=== PATIENT | male | born 1945 | race Caucasian/White ===

== ENCOUNTER → 2024-03-09 09:58 | Outpatient (REF) | payer OTHER, SELFPAY | LOC: RAD 09:58 | PROVIDERS: ATTENDING PHYSICIAN Surgery Vascular Surgery; FAMILY PHYSICIAN Nurse Practitioner Family | DX: I73.9 Peripheral vascular disease, unspecified (principal) | CPT/HCPCS: 93922; 93925 ==

== ENCOUNTER → 2024-04-26 10:36 | Outpatient (REF) | payer OTHER, SELFPAY | LOC: HWRAD 10:36 | PROVIDERS: ATTENDING PHYSICIAN Nurse Practitioner Family | DX: Z87.891 Personal history of nicotine dependence (principal); I50.32 Chronic diastolic (congestive) heart failure; R05.9 Cough, unspecified | CPT/HCPCS: 71046; 71271 ==

== ENCOUNTER → 2024-05-30 10:13 | Outpatient (REF) | payer OTHER, SELFPAY | LOC: HWRCS 10:13 | PROVIDERS: ATTENDING PHYSICIAN Nurse Practitioner Family | DX: I51.7 Cardiomegaly (principal) | CPT/HCPCS: 93306 ==

== ENCOUNTER → 2024-10-20 10:53 | Outpatient (REF) | payer OTHER, SELFPAY | LOC: RAD 10:53 | PROVIDERS: ATTENDING PHYSICIAN Registered Nurse; FAMILY PHYSICIAN Nurse Practitioner Family | DX: I72.3 Aneurysm of iliac artery (principal); I73.9 Peripheral vascular disease, unspecified | CPT/HCPCS: 93922; 93925; 93978 ==

== ENCOUNTER → 2025-04-03 12:34 | Outpatient (REF) | payer OTHER, SELFPAY | LOC: RAD 12:34 | PROVIDERS: ATTENDING PHYSICIAN Internal Medicine Critical Care Medicine; FAMILY PHYSICIAN Nurse Practitioner Family | DX: R91.1 Solitary pulmonary nodule (principal) | CPT/HCPCS: 71250 ==

== ENCOUNTER → 2025-04-25 11:14 | Outpatient (REF) | payer OTHER, SELFPAY | LOC: PET 11:14 | PROVIDERS: ATTENDING PHYSICIAN Internal Medicine Critical Care Medicine | DX: R91.1 Solitary pulmonary nodule (principal) | CPT/HCPCS: 78815 ==

== ENCOUNTER 2025-05-16 06:20 | Day surgery (SDC) | payer OTHER, SELFPAY ==
[2025-05-08 11:15] LABS: Hematocrit 32.3 % (39.0-52.0); Hemoglobin 9.4 g/dL (13.0-18.0); Mean Corp Hgb Conc. 29.1 g/dL (33.0-37.0); Mean Corpuscular Volume 80.3 fL (80.0-94.0); Platelet Count 282 10^3/uL (130-400); Red Cell Dist. Width 17.1 % (11.5-14.5)
[2025-05-08 11:26] LABS: APTT 31.0 Sec (23.4-35.0); INR 1.43; PT 17.7 Sec (11.4-14.6)
[2025-05-08 11:59] LABS: Blood Urea Nitrogen 12 mg/dl (9-20); Calcium 8.7 mg/dl (8.4-10.2); Carbon Dioxide 23 mmol/L (22-30); Chloride 110 mmol/L (98-107); Glucose 111 mg/dl (70-99); Potassium 5.0 mmol/L (3.5-5.1); Sodium 143 mmol/L (135-145); eGFR 56.23
[2025-05-08 14:11] VITALS: BMI 29.4
[2025-05-16] VITALS (7 sets, daily range): BP systolic 133–160; BP diastolic 61–85; BMI 29.0
[2025-05-16] MEDS: VENTOLIN NEBULES 2.5 MG INH (12:46)
[2025-05-16] MEDS: NSS 500 IV (13:11)
== END 2025-05-16 16:40 | disposition home or self-care (01) ==
LOC: SDS 06:20
PROVIDERS: ATTENDING PHYSICIAN Internal Medicine; FAMILY PHYSICIAN Nurse Practitioner Family
DX: C34.11 Malignant neoplasm of upper lobe, right bronchus or lung (principal); C77.1 Secondary and unspecified malignant neoplasm of intrathoracic lymph nodes
CPT/HCPCS: 31652; 31627; 31623; 31624; 36415; 71045; 80048; 85027; 85610; 85730; 87015; 87070; 87102; 87116; 87205; 88112; 88172; 88173; 88184; 88185; 88305; 88333; 88341; 88342; 94640

== ENCOUNTER 2025-05-27 17:32 | Emergency (ER) | payer OTHER, SELFPAY ==
[2025-05-27 17:39] VITALS: BP 167/75
--- NOTE | 2025-05-27 18:14 | ED.GENMED ---
History of Present Illness
General
Chief Complaint: Male Genito-Urinary Symptoms
Source: patient
Time Seen by Provider: 05/27/25 18:01
History of Present Illness
History of Present Illness:
This patient is a 79-year-old male presents emergency department with complaints of inability to properly urinate. He states he has had difficulty fully emptying his bladder for at least a couple of days and noted 'dribbling' such that he bought
pads last night. Particular in the last few hours, he notes inability to urinate and urgency. He has urinated a total of twice today. He denies bleeding, clots, flank pain, abdominal pain, nausea, vomiting, fever, chills, or other complaints.
Past History
Past History
ED Past Medical History: CAD, HTN, Hypercholesterolemia and Other (Atrial tachycardia, A-fib, CKD, peripheral vascular disease, valvular heart disease, heart failure, anxiety, arthritis)
ED Past Surgical History: Cardiac (AVR, CABG x3)
Social History
Tobacco: Former smoker
Alcohol: Occasional
Employment: Employed
Family History
Family History: Negative Diabetes, Hypertension, Early CAD, Asthma or Cancer
Phy Exam
Physical Exam
Physical Exam:
GENERAL: Alert , appears slightly uncomfortable
EYE: pupils equal and reactive
NECK: Supple, no significant adenopathy.
ENT: o/p clr, mmm.
CARDIAC: Regular rate and rhythm .
LUNGS: Clear breath sounds bilaterally, no acute respiratory distress, no wheezes/rales/rhonchi
ABDOMEN: Soft, without focal tenderness, no r/g, no cvat
NEUROLOGICAL: Alert and oriented, no focal neuro deficits
SKIN: Warm and dry, skin intact.
MUSCULOSKELETAL: No edema, well perfused.
PSYCH: Normal and appropriate interaction.
: (Sergey WOODS present) uncircumsc, ?swelling of penile shaft, no active bleeding/discharge, testicles wnl
Course
Orders/Labs/Results
Orders:
Orders
05/27/25 18:13
Bladder Scan- Treatment ONCE
diazePAM [Valium Injection] 5 mg IV NOW STA
05/27/25 18:16
Basic Metabolic Panel Urgent
Complete Blood Count/No Diff Urgent
05/27/25 18:58
CT Abd/pel Without Iv Or Oral Stat
Comment:
Reason For Exam: bladder pain
05/27/25 22:11
diazePAM [Valium Injection] 10 mg .ROUTE .STK-MED ONE
05/27/25 22:12
diazePAM [Valium Injection] 5 mg IV NOW STA
05/28/25 00:10
Amoxicillin 500 mg/Clav 125 mg [Augmentin 500 mg/125 mg] 1 tablet PO NOW STA
05/28/25 00:42
Amoxicillin 500 mg/Clav 125 mg [Augmentin 500 mg/125 mg] 1 tablet .ROUTE .STK-MED ONE
05/28/25 00:43
Amoxicillin 500 mg/Clav 125 mg [Augmentin 500 mg/125 mg] 1 tablet .ROUTE .STK-MED ONE
05/28/25 01:08
Urinalysis Reflex To Culture Urgent
Date Specimen was Collected: 05/28/25
Time Specimen was Collected: 01:06
Urine Microscopic Reflex Cult Urgent
Urine Culture Urgent
GRETTA Source: U
Specimen Description:
Date Specimen was Collected: 05/28/25
Time Specimen was Collected: 01:06
Abnormal Lab Results
05/27/25 05/28/25
18:16 01:08
RBC 3.78 L 10^6/uL
(4.70-6.10)
Hgb 9.0 L g/dL
(13.0-18.0)
Hct 30.0 L %
(39.0-52.0)
MCV 79.4 L fL
(80.0-94.0)
MCH 23.8 L pg
(27.0-31.0)
MCHC 30.0 L g/dL
(33.0-37.0)
RDW 17.7 H %
(11.5-14.5)
Chloride 110 H mmol/L
(98-107)
Glucose 109 H mg/dl
(70-99)
Urine Ketones 1+ A
(Negative)
Ur Occult Blood Reflex 4+ A
(Negative)
Leukocyte Esterase Rfl 2+ A
(Negative)
Urine RBC 11-15 A /HPF
(0-2)
Urine WBC (Reflex) 16-20 A /HPF
(0-5)
Urine Bacteria (Reflex) Many A
(Negative)
Urine Glucose 4+ A
(Negative)
Urine Albumin (Reflex) 2+ A
(Neg - Trace)
05/27/25 18:16
05/27/25 18:16
Vital Signs
Initial and Last Documented VS:
Initial Vital Signs
Temp Pulse Resp BP Pulse Ox
97.5 F 96 20 167/75 100
05/27/25 17:39 05/27/25 17:39 05/27/25 17:39 05/27/25 17:39 05/27/25 17:39
Last Documented Vital Signs
Temp Pulse Resp BP Pulse Ox
97.6 F 78 18 164/78 98
05/28/25 00:46 05/28/25 00:46 05/28/25 00:46 05/28/25 00:46 05/28/25 00:46
*Pulse Oximetry
SaO2: 100
Oxygen Mode of Delivery: Room air
Patient hypoxic: no
*Critical Care Note
Total Time (30-74mins, 75-104mins- exclusive of procedures): Not Applicable
Update Note
Update Note:
Patient presents to the Emergency Department with ____inability urinate
Number and Complexity of Problems Addressed at the Encounter
� Chronic conditions affecting care:
� Acute Exacerbation and/or Progression of Chronic Illness:
� Differential Diagnosis includes: But not limited to kidney stone, urinary retention caused by clots, urinary obstruction, renal insufficiency, etc. etc.
Amount and/or Complexity of Data to be Reviewed and Analyzed
� I performed an independent evaluation of and my interpretation is:
EKG:
CT:No acute pathology of the abdomen or pelvis and thigh.
Right lower lobe groundglass opacities and pulmonary nodules concerning for pulmonary metastasis. New
Bilateral adrenal soft tissue masses. Stable. Recent PET finding suggests adrenal metastasis
Bilateral common iliac artery aneurysms. Stable
Diverticulosis. Stable
Mild prostate hypertrophy. Stable
Xrays:
Laboratory Studies:anemia (approx baseline), otherwise nad
Other:
� Review of other/old records reveals: Review of prior records including May 16, 2025 patient noted to have an abnormal PET scan, is currently anticoagulated given his history of arrhythmia.
� Clinical information was obtained by an independent historian:
� Prescriptions/Medications Considered but not given:
� Further testing considered but not performed:
Risk of Complications and/or Morbidity or Mortality of Patient Management
� Social determinants of health affecting care:
� Discussion with other providers (PCP, Hospitalists, Consultants, etc):
� Escalation of care including admission/observation vs risk of discharge considered: Case discussed with urology Dr. Ortega as both myself and RN after multiple attempts unable to insert Hess catheter. He came bedside,
inserted Hess catheter, recommends antibiotics and follow-up with urology later this week. CAT scan report printed out for patient and discussed with him and his daughter. This will obviously require close follow-up as well.
ED Attending Note
-
Portions of this chart may have been created with voice recognition software.� Occasional wrong word or��sound alike� substitutions may have occurred due to the inherent limitations of voice recognition software.
Discharge Plan
Departure
Patient Disposition: Home (Routine Discharge)
Date of Disposition: 05/28/25
Time of Disposition: 00:07
Patient with high blood pressure during this ER visit?: Yes
Condition: Good
Discharge Problem:
Acute urinary retention
Instructions: How to Care for Your Hess Catheter, Male, Urinary Retention (DC), BLOOD PRESSURE
Prescriptions:
New
amoxicillin-pot clavulanate [Augmentin] 500-125 mg tablet
1 tab PO Q12H 7 Days Qty: 14 0RF
No Action
Centrum Silver 1 EACH tablet
1 ea PO DAILY
aspirin 81 MG tablet,delayed release (DR/EC)
81 mg PO DAILY
metoprolol succinate 50 MG tablet extended release 24 hr
50 mg PO BID Qty: 60 0RF
Eliquis 5 MG tablet
5 mg PO BID Qty: 60 0RF
ibuprofen [Advil Liqui-Gel] 200 mg Capsule
200 - 400 mg PO Q6HPRN PRN (Reason: PAIN)
atorvastatin 40 mg Tablet
40 mg PO HS
furosemide 40 MG tablet
40 mg PO DAILY
diltiazem HCl 120 mg Capsule,Extended Release 24hr
120 mg PO DAILY Qty: 30 0RF
Jardiance 10 mg Tablet
10 mg PO DAILY Qty: 30 0RF
alprazolam 0.5 mg Tablet
0.5 mg PO PRN PRN (Reason: ANXIETY)
pantoprazole 40 mg Tablet,Delayed Release (Dr/Ec)
40 mg PO DAILY
umeclidinium-vilanterol [Anoro Ellipta] 62.5-25 mcg/actuation Blister With Device
1 inh INHALATION DAILY
albuterol 90 mcg/actuation Aerosol
90 mcg INHALATION PRN PRN (Reason: SOB)
Patient Comments:
Patient never used medication
Referrals:
Boo Ortega MD [Active, Urology] - Follow up in 2-3 days
UNKNOWN - PT DOES,NOT KNOW [Family Provider]
Activity Restrictions/Additional Instructions:
YOU HAVE FINDINGS ON YOUR CAT SCAN THAT ARE CONCERNING AND REQUIRE VERY VERY CLOSE FOLLOW-UP. PLEASE BRING THIS REPORT TO YOUR DOCTOR THIS WEEK. YOU ALSO NEED TO SEE THE UROLOGIST REGARDING YOUR HESS CATHETER. IF THE CATHETER DOES NOT DRAIN, YOU
DEVELOP PAIN, BLEEDING, FEVER, CHILLS, ABDOMINAL PAIN, FLANK PAIN, VOMITING OR OTHER WORRISOME SIGNS, PLEASE RETURN TO THE ER IMMEDIATELY
Interventions
Interventions:
*Risk Screen - Suicide Last Done: 05/27/25 17:39
*General Assessment Last Done: 05/27/25 17:39
*Neglect/Abuse Screening Last Done: 05/28/25 00:47
*ED- Fall Risk Assessment Last Done: 05/28/25 00:47
*ED COVID-19 Vaccine History Last Done: 05/28/25 00:47
*Nursing Disposition Last Done: 05/28/25 01:42
ED-Male Genitourinary Assessment Last Done: 05/27/25 18:10
Discharge Date and Time
Discharge Date/Time: 05/28/25 01:42
Print Language: GUAMANIAN
[2025-05-27] MEDS: VALIUM INJECTION 5 MG IV ×2 (18:19→22:12)
[2025-05-27 18:35] LABS: Hematocrit 30.0 % (39.0-52.0); Hemoglobin 9.0 g/dL (13.0-18.0); Mean Corp Hgb Conc. 30.0 g/dL (33.0-37.0); Mean Corpuscular Volume 79.4 fL (80.0-94.0); Platelet Count 265 10^3/uL (130-400); Red Cell Dist. Width 17.7 % (11.5-14.5)
[2025-05-27 19:05] LABS: Blood Urea Nitrogen 16 mg/dl (9-20); Calcium 8.7 mg/dl (8.4-10.2); Carbon Dioxide 22 mmol/L (22-30); Chloride 110 mmol/L (98-107); Glucose 109 mg/dl (70-99); Potassium 4.3 mmol/L (3.5-5.1); Sodium 139 mmol/L (135-145); eGFR 56.23
[2025-05-27 20:14] VITALS: BP 130/70
[2025-05-28] MEDS: AUGMENTIN 500 MG/125 MG 1 TABLET PO (00:44)
[2025-05-28 00:46] VITALS: BP 164/78
[2025-05-28 01:18] LABS: Urine Character Cloudy (Clear)
[2025-05-28 01:58] LABS: Urine Squamous Cell 0-2 /LPF (Few); Urine White Cell 16-20 /HPF (0-5)
== END 2025-05-28 01:42 | disposition home or self-care (01) ==
LOC: EMR 17:32
PROVIDERS: EMERGENCY PHYSICIAN Emergency Medicine
DX: N40.1 Benign prostatic hyperplasia with lower urinary tract symptoms (principal); R33.8 Other retention of urine; R91.1 Solitary pulmonary nodule; D64.9 Anemia, unspecified; I72.3 Aneurysm of iliac artery; K57.30 Diverticulosis of large intestine without perforation or abscess without bleeding; I25.810 Atherosclerosis of coronary artery bypass graft(s) without angina pectoris; I48.91 Unspecified atrial fibrillation; I13.0 Hypertensive heart and chronic kidney disease with heart failure and stage 1 through stage 4 chronic kidney disease, or unspecified chronic kidney disease; I50.9 Heart failure, unspecified; N18.9 Chronic kidney disease, unspecified; E78.00 Pure hypercholesterolemia, unspecified; I73.9 Peripheral vascular disease, unspecified; F41.9 Anxiety disorder, unspecified; M19.90 Unspecified osteoarthritis, unspecified site; Z95.1 Presence of aortocoronary bypass graft; Z87.891 Personal history of nicotine dependence
CPT/HCPCS: 99284; 96374; 96376; 51702; 74176; 80048; 81003; 81015; 85027; 87086

== ENCOUNTER → 2025-06-25 09:24 | Outpatient (REF) | payer OTHER, SELFPAY ==
[2025-06-25 10:01] VITALS: BP 165/70; BP_SYST 81
[2025-06-25] MEDS: ANCEF 10 IV (10:13)
[2025-06-25 11:25] VITALS: BP 156/56; BP_SYST 84
== END ==
LOC: RADI 09:24
PROVIDERS: ATTENDING PHYSICIAN Internal Medicine Hematology & Oncology; FAMILY PHYSICIAN Nurse Practitioner Family
DX: C34.11 Malignant neoplasm of upper lobe, right bronchus or lung (principal)
CPT/HCPCS: 36561; 76937; 77001; 99152; 99153; C1788

== ENCOUNTER 2025-07-02 06:21 | Day surgery (SDC) | payer OTHER, SELFPAY ==
[2025-07-02] VITALS (8 sets, daily range): BP systolic 98–145; BP diastolic 59–84; BMI 28.3
[2025-07-02] MEDS: CARDIZEM 5 MG IV (16:27)
== END 2025-07-02 18:51 | disposition home or self-care (01) ==
LOC: SDS 06:21
PROVIDERS: ATTENDING PHYSICIAN Surgery
DX: R93.3 Abnormal findings on diagnostic imaging of other parts of digestive tract (principal); K57.30 Diverticulosis of large intestine without perforation or abscess without bleeding; K64.8 Other hemorrhoids; K63.89 Other specified diseases of intestine; D12.5 Benign neoplasm of sigmoid colon; D12.1 Benign neoplasm of appendix
CPT/HCPCS: 45385; 45381; 45380; 88305; 93005

== ENCOUNTER → 2025-09-26 10:38 | Outpatient (REF) | payer OTHER, SELFPAY | LOC: PET 10:38 | PROVIDERS: ATTENDING PHYSICIAN Internal Medicine Hematology & Oncology | DX: C34.11 Malignant neoplasm of upper lobe, right bronchus or lung (principal) | CPT/HCPCS: 78815; A9552 ==